=== PATIENT | female | born 2000 | race Caucasian/White ===

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

== ENCOUNTER 2021-01-30 21:19 | Emergency (ER) | payer MEDICAID ==
[~2021-01-30] VITALS: Ht 160 cm; Wt 46.3 kg
[2021-01-30 21:22] VITALS: BP 131/79
[2021-01-30 22:08] LABS: APPEARANCE,URINE Cloudy (CLEAR); BILIRUBIN,URINE Negative (NEGATIVE); COLOR,URINE Yellow (YELLOW); GLUCOSE, URINE (UA) Negative (NEGATIVE); KETONES,URINE Negative (NEGATIVE); LEUKOCYTE ESTERASE ,URINE Moderate (NEGATIVE); NITRATE,URINE Positive (NEGATIVE); OCCULT BLOOD,URINE Negative (NEGATIVE); PH,URINE 7.5 (5.0-8.0); PROTEIN,URINE Trace mg/dL (NEGATIVE)
[2021-01-30 22:10] LABS: HCG,QUAL RESULT NEGATIVE (NEGATIVE)
[2021-01-30 22:21] LABS: BACTERIA,URINE Moderate /HPF (None Seen); MUCUS,URINE Moderate LPF (None Seen); RBC,URINE 0-1 /HPF (0-1); SQUAMOUS EPITHELIAL CELL,UR Moderate /HPF (0-2)
[2021-01-30] MEDS ORDERED: PHENAZOPYRIDINE HCL 200 MG TABLET PO ONE (22:30)
[2021-01-30] MEDS ORDERED: CEPHALEXIN 500 MG CAPSULE PO ONE (22:30)
[2021-01-30] MEDS ORDERED: CEPH500B PO (22:32)
[2021-01-30] MEDS ORDERED: PHEN-847 PO (22:32)
== END 2021-01-30 22:46 | disposition home or self-care (01) ==
LOC: EDH 21:19
DX: N39.0 Urinary tract infection, site not specified (principal); Z87.440 Personal history of urinary (tract) infections
CPT/HCPCS: 81001; 81025; 87077; 87088; 87186

== ENCOUNTER 2021-02-16 21:23 | Emergency (ER) | payer MEDICAID ==
[~2021-02-16] VITALS: Ht 160 cm; Wt 46.3 kg
[~2021-02-16 21:23] MED LIST: CEPH500B PO; PHEN-847 PO
[2021-02-16 21:55] LABS: APPEARANCE,URINE Cloudy (CLEAR); BILIRUBIN,URINE Negative (NEGATIVE); COLOR,URINE Yellow (YELLOW); GLUCOSE, URINE (UA) Negative (NEGATIVE); KETONES,URINE Negative (NEGATIVE); LEUKOCYTE ESTERASE ,URINE Negative (NEGATIVE); NITRATE,URINE Negative (NEGATIVE); OCCULT BLOOD,URINE Negative (NEGATIVE); PROTEIN,URINE Negative (NEGATIVE)
[2021-02-16 21:58] LABS: HCG,QUAL RESULT NEGATIVE (NEGATIVE)
[2021-02-16 22:02] LABS: BACTERIA,URINE Few /HPF (None Seen); MUCUS,URINE Few LPF (None Seen); RBC,URINE None Seen /HPF (0-1); WBC,URINE 0-1 /HPF (0-1)
[2021-02-16] MEDS ORDERED: PHENAZOPYRIDINE HCL 200 MG TABLET PO ONE (22:30)
[2021-02-16] MEDS ORDERED: LACTULOSE 20 GM/30 ML UDCUP PO ONE (23:30)
[2021-02-16] MEDS ORDERED: MAGNESIUM CITRATE 296 ML SOLUTION PO ONE (23:30)
[2021-02-16 23:42] LABS: BASOPHILS % (AUTO) 0.6 % (0.0-5.0); EOSINOPHILS % (AUTO) 1.9 % (0.0-8.0); LYMPHOCYTES % (AUTO) 28.4 % (21.0-51.0); MEAN CORPUSCULAR HEMOGLOBIN 28.1 pg (27.0-33.0); MEAN CORPUSCULAR HGB CONC 32.3 g/dL (32.0-36.0); MEAN CORPUSCULAR VOLUME 87.1 fL (80-100); MONOCYTES % (AUTO) 9.4 % (3.0-13.0); NEUTROPHILS % (AUTO) 59.5 % (40.0-77.0); PLATELET COUNT (AUTO) 251 K/uL (130-400); RED BLOOD CELL COUNT(AUTO) 4.59 MIL/uL (4.00-5.50); RED CELL DISTRIBUTION WIDTH 13.3 % (11.0-15.5); WHITE BLOOD COUNT (AUTO) 14.9 K/uL (4.8-10.8)
[2021-02-17 00:02] LABS: CARBON DIOXIDE 26 mmol/L (21-32); CHLORIDE 107 mmol/L (101-111); CREATININE 0.6 mg/dL (0.5-1.5); GLOMERULAR FILTR. RATE CALC 137 mL/min (>60); GLUCOSE,RANDOM 91 mg/dL (70-105); POTASSIUM 3.7 mmol/L (3.5-5.1); SODIUM SERUM 142 mmol/L (136-145); UREA NITROGEN, BLOOD 19 mg/dL (7-18)
[2021-02-17 00:07] LABS: ALANINE AMINOTRANSFERASE 27 U/L (12-78); ALBUMIN 4.6 g/dL (3.5-5.0); ASPARTATE AMINOTRANSFERASE 20 U/L (10-37); BILIRUBIN,TOTAL 0.5 mg/dL (0.2-1.0); TOTAL PROTEIN, SERUM 7.9 g/dL (6.0-8.3)
[2021-02-17] MEDS ORDERED: LACTULOSE 20 GM/30 ML UDCUP ONE (00:53)
[2021-02-17] MEDS ORDERED: MAGNESIUM CITRATE 296 ML SOLUTION ONE (00:53)
[2021-02-17 01:32] LABS: CRP QUANTITATIVE < 2.00 mg/L (0.00-9.0)
[2021-02-17] MEDS ORDERED: LACT10SO5 PO (02:19)
[2021-02-17] MEDS ORDERED: CEPH500B PO (02:19)
[2021-02-17] MEDS ORDERED: DICY20TA2 PO (02:19)
[2021-02-17] MEDS ORDERED: MELO7.5T12 PO (02:19)
[2021-02-17] MEDS ORDERED: SULF1TAB42 PO (02:43)
[2021-02-17 02:47] VITALS: BP 110/62
[2021-02-17] MEDS ORDERED: ONDA4TAB10 PO (02:48)
[2021-02-17] MEDS ORDERED: SULFAMETHOX-TMP DS 800/160 TAB PO ONE (03:00)
[2021-02-17] MEDS ORDERED: ONDANSETRON 4MG INJ IVP ONE (03:00)
== END 2021-02-17 03:15 | disposition home or self-care (01) ==
LOC: EDH 21:23
DX: N39.0 Urinary tract infection, site not specified (principal); K59.00 Constipation, unspecified; D72.829 Elevated white blood cell count, unspecified; J45.909 Unspecified asthma, uncomplicated; Z79.1 Long term (current) use of non-steroidal anti-inflammatories (NSAID); Z79.899 Other long term (current) drug therapy
CPT/HCPCS: 36415; 74176; 80053; 81001; 81025; 83605; 85025; 86140; 87088; 96374; 99285; J2405

== ENCOUNTER 2021-02-22 00:57 | Emergency (ER) | payer MEDICAID ==
[~2021-02-22] VITALS: Ht 160 cm; Wt 45.4 kg
[~2021-02-22 00:57] MED LIST changes: +DICY20TA2 PO; +LACT10SO5 PO; +MELO7.5T12 PO; +ONDA4TAB10 PO; +SULF1TAB42 PO
[2021-02-22 01:00] VITALS: BP 127/67
[2021-02-22] MEDS ORDERED: IBUPROFEN 400 MG TABLET PO ONE (02:30)
[2021-02-22] MEDS ORDERED: ACETAMINOPHEN 500 MG TABLET PO ONE (02:30)
[2021-02-22] MEDS ORDERED: ONDANSETRON ODT 4MG TAB SL ONE (02:30)
[2021-02-22] MEDS ORDERED: ONDA4TAB10 PO (03:02)
[2021-02-22] MEDS ORDERED: METO-296 PO (03:02)
== END 2021-02-22 03:36 | disposition home or self-care (01) ==
LOC: EDH 00:57
DX: B34.9 Viral infection, unspecified (principal); R50.9 Fever, unspecified; Z20.822 Contact with and (suspected) exposure to COVID-19; Z79.1 Long term (current) use of non-steroidal anti-inflammatories (NSAID); Z79.899 Other long term (current) drug therapy
CPT/HCPCS: 87635; 87804 ×2; 87880; 99284; C9803

== ENCOUNTER 2021-02-24 23:51 | Emergency (ER) | payer MEDICAID ==
[~2021-02-24] VITALS: Ht 160 cm; Wt 46.7 kg
[~2021-02-24 23:51] MED LIST changes: +METO-296 PO
[2021-02-25] MEDS ORDERED: 0.9% NACL 500ML IV.SOLN 500 ML IV STA (00:43)
[2021-02-25] MEDS ORDERED: KETOROLAC 30MG VIAL (30MG/ML) IV ONE (01:00)
[2021-02-25] MEDS ORDERED: ACETAMINOPHEN 325 MG TAB PO ONE (01:00)
[2021-02-25 01:21] LABS: BASOPHILS % (AUTO) 0.6 % (0.0-5.0); HEMATOCRIT 37.7 % (36-48); LYMPHOCYTES % (AUTO) 23.8 % (21.0-51.0); MEAN CORPUSCULAR HEMOGLOBIN 27.9 pg (27.0-33.0); MEAN CORPUSCULAR HGB CONC 33.4 g/dL (32.0-36.0); MEAN CORPUSCULAR VOLUME 83.6 fL (80-100); MONOCYTES % (AUTO) 14.4 % (3.0-13.0); NEUTROPHILS % (AUTO) 60.6 % (40.0-77.0); PLATELET COUNT (AUTO) 96 K/uL (130-400); RED BLOOD CELL COUNT(AUTO) 4.51 MIL/uL (4.00-5.50); RED CELL DISTRIBUTION WIDTH 13.1 % (11.0-15.5); WHITE BLOOD COUNT (AUTO) 1.8 K/uL (4.8-10.8)
[2021-02-25 01:29] LABS: CREATININE 0.8 mg/dL (0.5-1.5); POTASSIUM 3.8 mmol/L (3.5-5.1)
[2021-02-25 01:34] LABS: ALBUMIN 4.1 g/dL (3.5-5.0); BILIRUBIN,TOTAL 0.4 mg/dL (0.2-1.0); TOTAL PROTEIN, SERUM 7.2 g/dL (6.0-8.3)
[2021-02-25 02:23] LABS: BILIRUBIN,URINE Negative (NEGATIVE); COLOR,URINE Yellow (YELLOW); GLUCOSE, URINE (UA) Negative (NEGATIVE); KETONES,URINE >=160 mg/dL (NEGATIVE); LEUKOCYTE ESTERASE ,URINE Negative (NEGATIVE); NITRATE,URINE Negative (NEGATIVE); OCCULT BLOOD,URINE Negative (NEGATIVE); PROTEIN,URINE POS 1+ mg/dL (NEGATIVE); UROBILINOGEN,URINE 0.2 mg/dL (0.2-1.0)
[2021-02-25 02:24] LABS: APPEARANCE,URINE SLIGHTLY CLOUDY (CLEAR); HCG,QUAL RESULT NEGATIVE (NEGATIVE)
[2021-02-25 02:37] LABS: BACTERIA,URINE Moderate /HPF (None Seen); RBC,URINE 0-1 /HPF (0-1)
[2021-02-25] MEDS ORDERED: 0.9%NACL 1000ML 1,000 ML IV ONE (03:00)
[2021-02-25 04:15] VITALS: BP 110/60
== END 2021-02-25 05:15 | disposition home or self-care (01) ==
LOC: EDH 23:51
DX: B34.9 Viral infection, unspecified (principal); E86.0 Dehydration; Z20.822 Contact with and (suspected) exposure to COVID-19; J45.909 Unspecified asthma, uncomplicated; Z79.1 Long term (current) use of non-steroidal anti-inflammatories (NSAID); Z79.899 Other long term (current) drug therapy
CPT/HCPCS: 36415; 71045; 80053; 81001; 81025; 82550; 83605; 85025; 85730; 87040; 87088; 87635; 87804 ×2; 87880; 96361 ×2; 96374; 99284; C9803; J1885; J7040

== ENCOUNTER 2021-02-27 00:18 | Emergency (ER) | payer MEDICAID ==
[~2021-02-27] VITALS: Ht 160 cm; Wt 44.9 kg
[2021-02-27] MEDS ORDERED: ACETAMINOPHEN 325 MG TAB ONE (01:49)
[2021-02-27] MEDS ORDERED: ACETAMINOPHEN 325 MG TAB PO ONE (02:00)
[2021-02-27 02:21] LABS: BASOPHILS % (AUTO) 0.5 % (0.0-5.0); EOSINOPHILS % (AUTO) 0.5 % (0.0-8.0); HEMATOCRIT 35.2 % (36-48); LYMPHOCYTES % (AUTO) 25.5 % (21.0-51.0); MEAN CORPUSCULAR HEMOGLOBIN 27.9 pg (27.0-33.0); MEAN CORPUSCULAR HGB CONC 33.2 g/dL (32.0-36.0); NEUTROPHILS % (AUTO) 63.5 % (40.0-77.0); PLATELET COUNT (AUTO) 65 K/uL (130-400); RED BLOOD CELL COUNT(AUTO) 4.19 MIL/uL (4.00-5.50); RED CELL DISTRIBUTION WIDTH 13.2 % (11.0-15.5)
[2021-02-27 02:36] LABS: CREATININE 0.8 mg/dL (0.5-1.5); POTASSIUM 3.5 mmol/L (3.5-5.1)
[2021-02-27 02:39] LABS: PLATELET MORPHOLOGY COMMENT ADEQUATE
[2021-02-27 02:40] LABS: ALBUMIN 3.7 g/dL (3.5-5.0); BILIRUBIN,TOTAL 0.4 mg/dL (0.2-1.0); TOTAL PROTEIN, SERUM 6.7 g/dL (6.0-8.3)
[2021-02-27] MEDS ORDERED: 0.9%NACL 1000ML 1,000 ML IV SCH (03:30)
[2021-02-27 05:22] LABS: APPEARANCE,URINE Clear (CLEAR); BILIRUBIN,URINE Negative (NEGATIVE); COLOR,URINE Yellow (YELLOW); GLUCOSE, URINE (UA) Negative (NEGATIVE); KETONES,URINE >=80 mg/dL (NEGATIVE); LEUKOCYTE ESTERASE ,URINE Negative (NEGATIVE); NITRATE,URINE Negative (NEGATIVE); OCCULT BLOOD,URINE Moderate (NEGATIVE); PH,URINE 6.5 (5.0-8.0); PROTEIN,URINE Negative (NEGATIVE)
[2021-02-27 05:34] LABS: BACTERIA,URINE None Seen /HPF (None Seen); SQUAMOUS EPITHELIAL CELL,UR Few /HPF (0-2); WBC,URINE None Seen /HPF (0-1)
[2021-02-27 08:10] VITALS: BP 105/51
== END 2021-02-27 08:15 | disposition home or self-care (01) ==
LOC: EDH 00:18
DX: B34.9 Viral infection, unspecified (principal); E86.0 Dehydration; Z20.822 Contact with and (suspected) exposure to COVID-19; J45.909 Unspecified asthma, uncomplicated; Z79.1 Long term (current) use of non-steroidal anti-inflammatories (NSAID); Z79.899 Other long term (current) drug therapy
CPT/HCPCS: 36415; 80053; 81001; 85025; 86308; 87040 ×2; 87088; 87635; 87804 ×2; 96360; 96361; 99285; C9803; J7030

== ENCOUNTER 2021-05-06 13:27 | Emergency (ER) | payer MEDICAID ==
[~2021-05-06] VITALS: Ht 160 cm; Wt 46.3 kg
[2021-05-06 14:21] LABS: APPEARANCE,URINE CLEAR (CLEAR); BILIRUBIN,URINE NEGATIVE (NEGATIVE); COLOR,URINE YELLOW (YELLOW); GLUCOSE, URINE (UA) NEGATIVE (NEGATIVE); KETONES,URINE NEGATIVE (NEGATIVE); LEUKOCYTE ESTERASE ,URINE NEGATIVE (NEGATIVE); NITRATE,URINE NEGATIVE (NEGATIVE); OCCULT BLOOD,URINE NEGATIVE (NEGATIVE); PROTEIN,URINE NEGATIVE (NEGATIVE); UROBILINOGEN,URINE 0.2 mg/dL (0.2-1.0)
[2021-05-06 14:26] LABS: BASOPHILS % (AUTO) 0.7 % (0.0-5.0); HEMATOCRIT 40.8 % (36-48); LYMPHOCYTES % (AUTO) 27.7 % (21.0-51.0); MEAN CORPUSCULAR HEMOGLOBIN 28.2 pg (27.0-33.0); MEAN CORPUSCULAR HGB CONC 32.8 g/dL (32.0-36.0); MEAN CORPUSCULAR VOLUME 85.7 fL (80-100); MONOCYTES % (AUTO) 8.8 % (3.0-13.0); NEUTROPHILS % (AUTO) 60.6 % (40.0-77.0); PLATELET COUNT (AUTO) 263 K/uL (130-400); RED BLOOD CELL COUNT(AUTO) 4.76 MIL/uL (4.00-5.50); RED CELL DISTRIBUTION WIDTH 13.9 % (11.0-15.5); WHITE BLOOD COUNT (AUTO) 9.1 K/uL (4.8-10.8)
[2021-05-06] MEDS ORDERED: LORAZEPAM 0.5 MG TABLET PO ONE (14:30)
[2021-05-06 14:32] LABS: HCG,QUAL RESULT NEGATIVE (NEGATIVE)
[2021-05-06 14:39] LABS: CREATININE 0.6 mg/dL (0.5-1.5); POTASSIUM 3.7 mmol/L (3.5-5.1)
[2021-05-06 14:43] LABS: ALBUMIN 4.4 g/dL (3.5-5.0); BILIRUBIN,TOTAL 0.9 mg/dL (0.2-1.0); TOTAL PROTEIN, SERUM 7.7 g/dL (6.0-8.3)
[2021-05-06] MEDS ORDERED: HYDR-3422 PO (15:09)
[2021-05-06 15:15] VITALS: BP 106/68
== END 2021-05-06 15:24 | disposition home or self-care (01) ==
LOC: EDH 13:27
DX: F41.9 Anxiety disorder, unspecified (principal); J45.909 Unspecified asthma, uncomplicated; Z88.2 Allergy status to sulfonamides; Z88.1 Allergy status to other antibiotic agents; Z79.899 Other long term (current) drug therapy
CPT/HCPCS: 36415; 71045; 80053; 81003; 81025; 85025

== ENCOUNTER 2021-08-15 20:16 | Emergency (ER) | payer MEDICAID ==
[~2021-08-15 20:16] MED LIST changes: +HYDR-3422 PO
== END 2021-08-15 20:39 | disposition left against medical advice (07) ==
LOC: EDH 20:16
DX: R10.9 Unspecified abdominal pain (principal); Z53.21 Procedure and treatment not carried out due to patient leaving prior to being seen by health care provider

== ENCOUNTER 2021-08-18 19:14 | Emergency (ER) | payer MEDICAID ==
[~2021-08-18] VITALS: Ht 160 cm; Wt 49.9 kg
[2021-08-18 20:58] VITALS: BP 108/73
[2021-08-18] MEDS ORDERED: IBUPROFEN 100 MG/5 ML SUSP UDCUP PO ONE (21:00)
[2021-08-18] MEDS ORDERED: IBUP-14 PO (21:07)
== END 2021-08-18 21:21 | disposition home or self-care (01) ==
LOC: EDH 19:14
DX: M54.2 Cervicalgia (principal); F41.9 Anxiety disorder, unspecified; J45.909 Unspecified asthma, uncomplicated; Z88.2 Allergy status to sulfonamides; Z88.1 Allergy status to other antibiotic agents; Z79.899 Other long term (current) drug therapy; V49.49XA Driver injured in collision with other motor vehicles in traffic accident, initial encounter; Y93.89 Activity, other specified; Y92.89 Other specified places as the place of occurrence of the external cause; Y99.8 Other external cause status
CPT/HCPCS: 70450; 72125